=== PATIENT | male | born 1985 | race Caucasian/White ===

== ENCOUNTER 2016-11-30 09:44 | Emergency (ER) | payer OTHER ==
[~2016-11-30] VITALS: Ht 180.3 cm; Wt 95.3 kg
--- NOTE | ~2016-11-30 | EKG ---
[address] [address] ELECTROCARDIOGRAM REPORT Name: JENNIFER SIMS Room #: [facility] Daniel#: [id number] Admission: 11/30/16 Attend Phys: Discharge: 11/30/16 Date of : 87 Report #: [id number] THIS REPORT FOR: //name// [facility] ED Test Date: 2016-11-30 Test Time: 09:48:59 Pat Name: JENNIFER SIMS Department: Room: Gender: [employer]: [facility] : 1985 Requested By: Walker Huston Order Number: [id number] MD: Kyaw Asher Measurements Intervals [place] Rate: 85 P: 83 ND: 168 QRS: 53 QRSD: 95 T: 53 QT: 374 QTc: 445 Interpretive Statements Sinus rhythm Compared to ECG 10/17/2014 11:27:58 Sinus tachycardia no longer present Electronically Signed On 11-30-2016 13:16:52 CDT by Kyaw Asher [email or web address] <ELECTRONICALLY SIGNED> By: Kyaw Asher MD 11/30/16 1316 0948 0948 Kyaw Asher MD /[email or web address]
[~2016-11-30 09:44] MED LIST: BACTRIM DS TAB1 EACH PO; CLONAZEPAM; CLONIDINE0.1 PO; DEPAKOTE 250MG250 M1 PO; DESYREL; KEFLEX500 MG PO; NORCO 10-325 T1 EACH; NORCO 5-325 TA1 EACH PO; PHENERGAN 25 MG25 M1 PO; SEROQUEL; TENORMIN50 MG; TENORMIN50 MG PO; VICOPROFEN 2001 EACH PO; VIIBRYD40 MG; XANAX 1 MG TABLE1 MG PO
[2016-11-30 10:48] VITALS: BP 149/97
[2016-11-30 10:51] LABS: HEMATOCRIT 45.4 % (42.0-52.0); HEMOGLOBIN 15.5 gm/dL (14.0-18.0); MCH 30.9 pg (26.0-34.0); MCHC 34.2 g/dL (28.0-37.0); MCV 90.3 fL (80.0-100.0); RBC 5.03 mil/uL (4.50-6.00); RDW 14.3 % (10.5-14.5); WBC 8.3 thou/uL (4.0-11.0)
[2016-11-30 10:54] LABS: ANION GAP 6 mmol/L (7-16); BUN 16 mg/dL (7-18); CALCIUM 9.8 mg/dL (8.5-10.1); CHLORIDE 103 mmol/L (98-107); CO2 27 mmol/L (21-32); CREATININE 0.8 mg/dL (0.7-1.3); GLUCOSE 116 mg/dL (74-106); POTASSIUM 3.8 mmol/L (3.5-5.1); SODIUM 136 mmol/L (136-145)
[2016-11-30 11:03] LABS: TROPONIN-I < 0.04 ng/mL (<0.04-0.07)
== END 2016-11-30 11:31 | disposition home or self-care (01) ==
LOC: ER 09:44
PROVIDERS: Emergency Medicine
DX: I10 Essential (primary) hypertension (principal); S52.002A Unspecified fracture of upper end of left ulna, initial encounter for closed fracture; Z88.0 Allergy status to penicillin; F17.210 Nicotine dependence, cigarettes, uncomplicated; F32.9 Major depressive disorder, single episode, unspecified; W01.0XXA Fall on same level from slipping, tripping and stumbling without subsequent striking against object, initial encounter; Y93.02 Activity, running; Y92.89 Other specified places as the place of occurrence of the external cause; Y99.8 Other external cause status